=== PATIENT | male | born 1955 | race Caucasian/White ===

== ENCOUNTER 2019-10-22 04:57 | Day surgery (SDC) | payer BC ==
[2019-10-20 15:00] VITALS: BMI 29.0
[~2019-10-22 04:57] MED LIST: ACETAMINOPHEN 325 MG TABLET (FP) PO PRN; CHONDROITIN SU A/HYALUR SOD 1 KIT IO ONE; EPINEPHrine/PF 1 MG/1 ML (1:1,000) AMPULE SQ ONE; LIDOCAINE HCL 1% PRESERVATIVE FREE - 30ML VIAL IO ONE; TRYPAN BLUE 0.5 ML DISP.SYRIN IO ONE
[2019-10-22] MEDS ORDERED: CHONDROITIN SU A/HYALUR SOD 1 KIT ONE (07:11)
[2019-10-22] MEDS ORDERED: TRYPAN BLUE 0.5 ML DISP.SYRIN ONE (07:20)
[2019-10-22] MEDS ORDERED: TETRACAINE 0.5% OPHTH SOLN 2 ML BOTTLE ONE (07:20)
[2019-10-22] MEDS ORDERED: EPINEPHrine/PF 1 MG/1 ML (1:1,000) AMPULE ONE (07:20)
[2019-10-22] MEDS ORDERED: PHENYLEPHRINE 2.5% OPHTH SOLN 15 ML BOTTLE ONE (07:33)
[2019-10-22] MEDS ORDERED: OFLOXACIN 0.3% OPHTHALMIC SOLUTION 5 ML BOTTLE ONE (07:33)
[2019-10-22] MEDS ORDERED: CYCLOPENTOLATE HCL 1% OPHTH SOLN 2 ML BOTTLE ONE (07:33)
[2019-10-22] MEDS ORDERED: TROPICAMIDE 1% OPHTH SOLN 15 ML BOTTLE ONE (07:34)
[2019-10-22] MEDS ORDERED: KETOROLAC TROMETHAMINE 0.5% EYE DROP 1 DROP DROPS ONE (07:34)
[2019-10-22] MEDS: OFLOXACIN 0.3% OPHTHALMIC SOLUTION 5 ML BOTTLE OP SCH ×3 (07:45→08:10)
[2019-10-22] MEDS: TROPICAMIDE 1% OPHTH SOLN 15 ML BOTTLE OP SCH ×3 (07:45→08:10)
[2019-10-22] MEDS: PHENYLEPHRINE 2.5% OPHTH SOLN 15 ML BOTTLE OP SCH ×3 (07:45→08:10)
[2019-10-22] MEDS: CYCLOPENTOLATE HCL 1% OPHTH SOLN 2 ML BOTTLE OP SCH ×3 (07:45→08:10)
[2019-10-22] MEDS: KETOROLAC TROMETHAMINE 0.5% EYE DROP 1 DROP DROPS OP SCH ×3 (07:45→08:10)
[2019-10-22] MEDS ORDERED: MIDAZOLAM HCL 2 MG/2 ML SINGLE DOSE VIAL ONE (08:40)
[2019-10-22] MEDS ORDERED: EPINEPHrine/PF 1 MG/1 ML (1:1,000) AMPULE SQ ONE (09:19)
[2019-10-22] MEDS ORDERED: TETRACAINE 0.5% OPHTH SOLN 2 ML BOTTLE TP ONE (09:22)
[2019-10-22] MEDS ORDERED: LIDOCAINE HCL 1% PRESERVATIVE FREE - 30ML VIAL IO ONE (09:30)
[2019-10-22] MEDS ORDERED: TRYPAN BLUE 0.5 ML DISP.SYRIN IO ONE (09:31)
[2019-10-22] MEDS ORDERED: CHONDROITIN SU A/HYALUR SOD 1 KIT IO ONE (09:32)
[2019-10-22 10:18] VITALS: TEMP 98
[2019-10-22 11:00] VITALS: BP 112/69; PULSE 80
--- NOTE | 2019-10-22 13:12 | SPEC ---
DATE OF OPERATION: DATE OF DICTATION: 10/22/2019 OPERATION: Phacoemulsification of right cataract with capsular staining with Trypan Blue and posterior chamber intraocular lens implantation, lens used [id number], 18.5 diopter power, serial no. [id number]. PREOPERATIVE DIAGNOSIS: Mature cataract, right eye. ASSOCIATIVE DIAGNOSIS: Status post pars plana vitrectomy. POSTOPERATIVE DIAGNOSIS: Mature cataract, right eye. SURGEON: Mandy García M.D. ANESTHESIA: Topical MAC. COMPLICATIONS: None. PROCEDURE: The patient was brought to the operating room and correctly identified along with the operative site as well as correct intraocular lens elias. The patient was then prepped and draped in the usual sterile fashion including 5% Betadine solution in the conjunctival sac and an eyelid drape. An eyelid speculum was then placed into the operative eye. The eye was inspected and a poor red reflex was noted. A paracentesis port was created and 0.5 mL of intracameral preservative-free lidocaine 1% was given. Beneath an air bubble, the capsule was then stained with Trypan Blue. The Trypan Blue was then irrigated from the eye with balanced salt solution (BBS). Viscoelastic was injected to inflate the anterior chamber. A temporal clear corneal wound was created. A continuous circular capsulorrhexis was performed. The nucleus was then hydro-dissected and hydro-delineated with BSS and removed with phacoemulsification via dzzluz-ozu-hutrduh approach. The remaining cortical material was irrigated and aspirated from the eye. Viscoelastic was injected in the anterior chamber to inflate the capsular bag. The intraocular lens was then injected into the bag. The Viscoelastic was irrigated and aspirated from the eye. All wounds were tested and found to be watertight. No suture was placed. The intraocular lens was noted to be well centered and covered by the anterior capsular border. Topical vancomycin was given. The eye was patched and shielded. The patient was discharged from the operating room in stable condition. MANDY GARCÍA M.D. [id number]
== END 2019-10-22 11:00 | disposition home or self-care (01) ==
LOC: JASU-SURG 04:57
PROVIDERS: ATTEND Ophthalmology
PROC: 08RJ3JZ Replacement of Right Lens with Synthetic Substitute, Percutaneous Approach (ICD-10-PCS; principal; 2019-10-22 09:00)
DX: H25.091 Other age-related incipient cataract, right eye (principal); E11.9 Type 2 diabetes mellitus without complications; Z79.84 Long term (current) use of oral hypoglycemic drugs
CPT/HCPCS: 82962

== ENCOUNTER 2024-03-19 03:56 | Day surgery (SDC) | payer BC ==
[2024-03-17 13:42] VITALS: BMI 27.7
[~2024-03-19 03:56] MED LIST changes: -CHONDROITIN SU A/HYALUR SOD 1 KIT IO ONE; -EPINEPHrine/PF 1 MG/1 ML (1:1,000) AMPULE SQ ONE; -LIDOCAINE HCL 1% PRESERVATIVE FREE - 30ML VIAL IO ONE; -TRYPAN BLUE 0.5 ML DISP.SYRIN IO ONE
[2024-03-19] MEDS ORDERED: CYCLOPENTOLATE HCL 1% OPHTH SOLN 2 ML BOTTLE ONE (06:03)
[2024-03-19] MEDS ORDERED: KETOROLAC TROMETHAMINE 0.5% EYE DROP 1 DROP DROPS ONE (06:03)
[2024-03-19] MEDS ORDERED: OFLOXACIN 0.3% OPHTHALMIC SOLUTION 5 ML BOTTLE ONE (06:04)
[2024-03-19] MEDS ORDERED: TROPICAMIDE 1% OPHTH SOLN 15 ML BOTTLE ONE (06:04)
[2024-03-19] MEDS: KETOROLAC TROMETHAMINE 0.5% EYE DROP 1 DROP DROPS OP SCH (06:15)
[2024-03-19] MEDS: TROPICAMIDE 1% OPHTH SOLN 15 ML BOTTLE OP SCH (06:15)
[2024-03-19] MEDS: CYCLOPENTOLATE HCL 1% OPHTH SOLN 2 ML BOTTLE OP SCH (06:15)
[2024-03-19] MEDS: OFLOXACIN 0.3% OPHTHALMIC SOLUTION 5 ML BOTTLE OP SCH (06:15)
[2024-03-19] MEDS: PHENYLEPHRINE 2.5% OPTHALMIC DROP 2ML BOTTLE ONE (06:15)
[2024-03-19] MEDS ORDERED: TETRACAINE 0.5% OPHTH SOLN 2 ML BOTTLE ONE (07:47)
[2024-03-19] MEDS ORDERED: LIDOCAINE HCL/PF 1% SDV 5ML VIAL ONE (07:47)
[2024-03-19] MEDS ORDERED: POVIDONE-IODINE 5% OPHTHALMIC PREP 30 ML SOLUTION ONE (07:47)
[2024-03-19] MEDS ORDERED: VANCOMYCIN 500 MG VIAL (RESTRICTED TO ID ONLY) ONE (07:50)
[2024-03-19] MEDS ORDERED: MIDAZOLAM HCL 2 MG/2 ML SINGLE DOSE VIAL ONE (07:59)
[2024-03-19] MEDS ORDERED: ONDANSETRON 4 MG/2 ML VIAL ONE (07:59)
[2024-03-19] MEDS: TETRACAINE 0.5% OPHTH SOLN 2 ML BOTTLE OS ONE (08:06)
[2024-03-19] MEDS: POVIDONE-IODINE 5% OPHTHALMIC PREP 30 ML SOLUTION OS ONE (08:09)
[2024-03-19] MEDS: LIDOCAINE HCL 1% PRESERVATIVE FREE - 30ML VIAL IO ONE (08:13)
[2024-03-19] MEDS: CHONDROITIN SU A/HYALUR SOD 1 KIT IO ONE (08:15)
[2024-03-19] MEDS: BSS (NA/CA/MG/K) BALANCED SALT SOLUTION OPHTH SOLN 15 ML BOTTLE IO ONE (08:16)
[2024-03-19] MEDS ORDERED: FENTANYL CITRATE/PF 50 MCG/ML VIAL ONE (08:19)
[2024-03-19] MEDS: EPINEPHrine/PF 1 MG/1 ML (1:1,000) AMPULE IO ONE (08:26)
[2024-03-19] MEDS ORDERED: PHENYLEPHRINE 2.5% OPHTH SOLN 15 ML BOTTLE OP SCH (08:30)
[2024-03-19] MEDS: VANCOMYCIN 500 MG VIAL (RESTRICTED TO ID ONLY) IVPB ONE ×2 (08:36)
[2024-03-19 09:56] VITALS: RESP 18
[2024-03-19 09:58] VITALS: BP 119/62; PULSE 70; TEMP 98
== END 2024-03-19 09:30 | disposition home or self-care (01) ==
LOC: JASU-SURG 03:56
PROVIDERS: ATTEND Ophthalmology
PROC: 08RK3JZ Replacement of Left Lens with Synthetic Substitute, Percutaneous Approach (ICD-10-PCS; principal; 2024-03-19 08:00)
DX: H26.9 Unspecified cataract (principal)
CPT/HCPCS: 66984; V2632; 82962